=== PATIENT | male | born 1990 | race Caucasian/White ===

== ENCOUNTER 2022-04-21 20:38 | Emergency (ER) | payer MEDICAID ==
[~2022-04-21] VITALS: Ht 170.2 cm; Wt 97.5 kg
[2022-04-21 20:38] VITALS: BP 126/83
--- NOTE | 2022-04-21 20:44 | NUR ---
[facility] ALS TO ER BED 07
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
[2022-04-21] MEDS ORDERED: LIDOCAINE MPF 1% 10 MG/ML VIAL INJ ONE (21:15)
[2022-04-21 21:32] LABS: BASOPHILS % (AUTO) 0.5 % (0.0-2.0); EOSINOPHILS # (AUTO) 0.1 K/uL (0-0.4); EOSINOPHILS % (AUTO) 1.3 % (0.0-4.0); HEMATOCRIT 42.3 % (36-52); HEMOGLOBIN 14.6 g/dL (12.0-18.0); LYMPHOCYTES # (AUTO) 2.2 K/uL (2.0-11.5); LYMPHOCYTES % (AUTO) 30.9 % (20.5-51.1); MEAN CORPUSCULAR HEMOGLOBIN 30 pg (27-31); MEAN CORPUSCULAR HGB CONC 34 g/dL (33-37); MEAN CORPUSCULAR VOLUME 88.1 fL (80-94); MONOCYTES # (AUTO) 0.5 K/uL (0.8-1.0); MONOCYTES % (AUTO) 6.5 % (1.7-9.3); NEUTROPHILS # (AUTO) 4.4 K/uL (1.8-7.7); NEUTROPHILS % (AUTO) 60.8 % (42.2-75.2); PLATELET COUNT (AUTO) 348 K/uL (140-450); RED CELL DISTRIBUTION WIDTH 13.1 % (11.6-13.7); WHITE BLOOD COUNT (AUTO) 7.2 K/uL (4.8-10.8)
--- NOTE | 2022-04-21 21:33 | NUR ---
PT WAS MOVED TO ER BED 06
--- NOTE | 2022-04-21 21:59 | NUR ---
patient medicated as ordered w/ tetanus 0.5ml to left deltoid. Will observe for any adverse reaction. Bed to low position sr up, continue to monitor.
[2022-04-21 22:00] LABS: ALBUMIN 4.1 g/dL (3.4-5.0); ANION GAP 18.3 (8-16); ASPARTATE AMINOTRANSFERASE 69 U/L (15-37); CARBON DIOXIDE 22.5 mmol/L (21-32); CHLORIDE 103 mmol/L (98-107); CREATININE 0.9 mg/dL (0.6-1.3); GFR ARICAN-AMERICAN 127 mL/min (>90); GLUCOSE 125 mg/dL (74-106); POTASSIUM 3.8 mmol/L (3.5-5.1); SALICYLATE < 2.8 mg/dL (2.8-20.0); SODIUM SERUM 140 mmol/L (136-145); TOTAL BILIRUBIN 0.6 mg/dL (0.0-1.0); UREA NITROGEN, BLOOD 18 mg/dL (7-18)
[2022-04-21 22:01] LABS: ACETAMINOPHEN < 0.5 ug/ml (10-30)
--- NOTE | 2022-04-21 22:01 | NUR ---
Patient has a 11 cm laceration to left hand and to left neck. Dr. Douglas applied sutures using sterile technique. Edges well approximated. Site cleansed with sterile water and betadine. No bleeding noted. Pt tolerated well.
--- NOTE | 2022-04-21 22:45 | NUR ---
No change from previous assessment. Patient asleep resting comfortably at this time in no acute distress. Bed to low position sr up, no bizarre or unusual behavior noted. Continue to monitor.
--- NOTE | 2022-04-22 00:45 | NUR ---
No change from previous assessment. patient resting comfortably at this time in no acute distress. no bizarre or unusual behavior noted. Continue to monitor.
--- NOTE | 2022-04-22 01:00 | NUR ---
obtained covid swabs and urine. all sent to lab.
[2022-04-22 01:36] LABS: BARBITURATE, URINE NEGATIVE ng/ml (NEG <=200); BENZODIAZEPINE, URINE NEGATIVE ng/mL (NEG <=200); CANNABINOID, URINE POSITIVE ng/mL (NEG <=50); COCAINE, URINE NEGATIVE ng/mL (NEG <=300); OPIATE, URINE NEGATIVE ng/mL (NEG <=2000); PHENCYCLIDINE SCREEN,URINE NEGATIVE ng/mL (NEG <=25)
--- NOTE | 2022-04-22 03:00 | NUR ---
No change from previous assessment. patient resting comfortably at this time in no acute distress. no bizarre or unusual behavior noted. Continue to monitor. sutures intact, no evidence of any bleeding. nvi, crf<3 sec.
--- NOTE | 2022-04-22 05:12 | NUR ---
DR. CORONADO MEDICALLY CLEARED PT.
--- NOTE | 2022-04-22 07:12 | NUR ---
PT RECEIVED, CARE ASSUMED. PT A/OX4. INTRODUCED MYSELF. PT DENIES ANY PAIN OR DISTRESS. PT DENIES WANTING TO HURT SELF. 1:1 SITTER AT BED SIDE. WILL CONTINUE TO MONITOR
--- NOTE | 2022-04-22 08:29 | NUR ---
DR. LY EVALUATING PATIENT VIA TELEPSYCH.
[2022-04-22 14:31] VITALS: BP 139/82
--- NOTE | 2022-04-22 14:35 | NUR ---
Patient Tranfers to outside Facility [facility] Physician: Location:
== END 2022-04-22 14:35 ==
LOC: MED 20:38
DX: S11.83XA Puncture wound without foreign body of other specified part of neck, initial encounter (principal); Z20.822 Contact with and (suspected) exposure to COVID-19; S61.512A Laceration without foreign body of left wrist, initial encounter; F10.129 Alcohol abuse with intoxication, unspecified; Z02.89 Encounter for other administrative examinations; X78.8XXA Intentional self-harm by other sharp object, initial encounter; Y93.89 Activity, other specified; Y92.481 Parking lot as the place of occurrence of the external cause; Y99.8 Other external cause status
CPT/HCPCS: 12002; 36415; 80053; 80305; 85025; 87426; 87635; 90471; 90715; 93005; 99291; C9803; G0480; G0482; J2001; 99285